=== PATIENT | female | born 1960 | race Caucasian/White ===

== ENCOUNTER 2021-11-02 17:06 | Emergency (ER) | payer SELFPAY ==
[~2021-11-02] VITALS: Ht 165.1 cm; Wt 104.5 kg
[2021-11-02] MEDS ORDERED: LEVO-T175 MCG PO (17:25)
[2021-11-02 18:36] LABS: BASO # 0.05 K/mm3 (0.02-0.10); EOS % 1.9 % (1.0-5.0); HEMATOCRIT 37.1 % (37.0-47.0); HEMOGLOBIN 11.8 g/dL (12.5-16.0); LYMPH# 2.34 K/mm3 (1.50-4.00); MEAN CELL VOLUME 97 fl (78-100); MEAN CORPUSCULAR HEMOGLOBIN 31 pg (27-31); MEAN CORPUSCULAR HGB CONC 32 g/dL (33-37); MEAN PLATELET VOLUME 10.9 fl (7.4-10.4); NEU # 7.38 K/mm3 (1.40-6.50); PLATELET COUNT 264 K/mm3 (130-400); RED BLOOD COUNT 3.82 M/mm3 (4.10-5.30); RED CELL DISTRIBUTION WIDTH 15.1 % (11.5-14.5); WHITE BLOOD COUNT 10.7 K/mm3 (4.8-10.8)
[2021-11-02 18:57] LABS: ALBUMIN 4.4 g/dL (3.4-4.8); POTASSIUM 4.2 mmol/L (3.5-5.1); SODIUM 140 mmol/L (136-145)
[2021-11-02 18:58] LABS: CALCIUM 10.3 mg/dL (8.3-10.5)
[2021-11-02 18:59] LABS: GLUCOSE 97 mg/dL (65-105); TOTAL PROTEIN 7.2 g/dL (6.2-8.1)
[2021-11-02 19:01] LABS: CARBON DIOXIDE 27 mmol/L (23-31); TOTAL BILIRUBIN 0.3 mg/dL (0.2-1.2)
[2021-11-02 19:05] LABS: AST-SGOT 18 U/L (5-34)
[2021-11-02 19:06] LABS: ALT/SGPT 18 U/L (0-55)
[2021-11-02 19:16] LABS: TROPONIN-I < 0.030 ng/mL (<0.030)
[2021-11-02] MEDS ORDERED: LEVOTHYROXIN0.025 MG PO (20:43)
[2021-11-02 21:04] VITALS: BP 151/81
== END 2021-11-02 21:04 | disposition home or self-care (01) ==
LOC: ED 17:06
PROVIDERS: Family Medicine
DX: E03.9 Hypothyroidism, unspecified (principal); G62.9 Polyneuropathy, unspecified; F17.210 Nicotine dependence, cigarettes, uncomplicated

== ENCOUNTER 2024-03-13 09:44 | Emergency (ER) | payer BC ==
[~2024-03-13] VITALS: Ht 165.1 cm; Wt 119.4 kg
[~2024-03-13 09:44] MED LIST: LEVO-T175 MCG PO; LEVOTHYROXIN0.025 MG PO
[2024-03-13] MEDS ORDERED: LEVOTHYROXINE0.15 MG PO (09:55)
[2024-03-13 10:50] LABS: BASO # 0.04 K/mm3 (0.02-0.10); EOS # 0.08 K/mm3 (0.04-0.40); HEMATOCRIT 31.6 % (37.0-47.0); LYMPH# 1.45 K/mm3 (1.50-4.00); MEAN CELL VOLUME 80 fl (78-100); MEAN CORPUSCULAR HEMOGLOBIN 23 pg (27-31); MEAN CORPUSCULAR HGB CONC 29 g/dL (33-37); MEAN PLATELET VOLUME 10.5 fl (7.4-10.4); MONO # 0.51 K/mm3 (0.20-0.80); PLATELET COUNT 292 K/mm3 (130-400); RED BLOOD COUNT 3.97 M/mm3 (4.10-5.30); RED CELL DISTRIBUTION WIDTH 16.6 % (11.5-14.5)
[2024-03-13 10:54] LABS: SODIUM 138 mmol/L (136-145)
[2024-03-13 10:55] LABS: CALCIUM 9.9 mg/dL (8.3-10.5)
[2024-03-13 10:56] LABS: GLUCOSE 112 mg/dL (65-105); TOTAL PROTEIN 6.8 g/dL (6.2-8.1)
[2024-03-13 10:57] LABS: CARBON DIOXIDE 24 mmol/L (23-31)
[2024-03-13 10:58] LABS: TOTAL BILIRUBIN 0.3 mg/dL (0.2-1.2)
[2024-03-13 11:02] LABS: AST-SGOT 10 U/L (5-34)
[2024-03-13 11:03] LABS: ALT/SGPT 13 U/L (0-55)
[2024-03-13 11:10] LABS: TROPONIN-I < 0.030 ng/mL (0.00-0.033)
[2024-03-13 11:17] LABS: HEMOGLOBIN 9.1 g/dL (12.5-16.0)
[2024-03-13 13:20] LABS: HEMATOCRIT 32.8 % (37.0-47.0); HEMOGLOBIN 9.3 g/dL (12.5-16.0)
[2024-03-13] MEDS ORDERED: PANTOPRAZOLE SO40 MG PO (13:42)
[2024-03-13 14:12] VITALS: BP 137/73
== END 2024-03-13 14:25 | disposition home or self-care (01) ==
LOC: ED 09:44
PROVIDERS: Physician Assistant
DX: D64.9 Anemia, unspecified (principal); T39.395A Adverse effect of other nonsteroidal anti-inflammatory drugs [NSAID], initial encounter; K92.2 Gastrointestinal hemorrhage, unspecified; I49.3 Ventricular premature depolarization